=== PATIENT | male | born 1995 ===

== ENCOUNTER 2023-04-08 20:32 | Emergency (ER) | payer SELFPAY ==
[~2023-04-08] VITALS: Ht 171 cm; Wt 89.8 kg
[2023-04-08] MEDS ORDERED: LACTATED RINGERS 1,000 ML IV STA (20:46)
[2023-04-08] MEDS ORDERED: ONDANSETRON 4 MG/2 ML (SDV) Z0FRAN IVP ONE (21:00)
[2023-04-08 21:08] LABS: BASOPHILS # (AUTO) 0.1 10^3/uL (0.0-0.1); BASOPHILS % (AUTO) 0 % (0-10); EOSINOPHILS % (AUTO) 7 % (0-10); HEMATOCRIT 50 % (40-54); HEMOGLOBIN 17.3 g/dL (13.3-17.7); LYMPHOCYTES % (AUTO) 29 % (12-44); MEAN CORPUSCULAR HEMOGLOBIN 29 pg (25-34); MEAN CORPUSCULAR HGB CONC 35 g/dL (32-36); MEAN CORPUSCULAR VOLUME 84 fL (80-99); MEAN PLATELET VOLUME 10.1 fL (9.0-12.2); MONOCYTES % (AUTO) 7 % (0-12); NEUTROPHILS # (AUTO) 7.8 10^3/uL (1.8-7.8); NEUTROPHILS % (AUTO) 56 % (42-75); PLATELET COUNT 361 10^3/uL (130-400); WHITE BLOOD COUNT 13.9 10^3/uL (4.3-11.0)
--- NOTE | 2023-04-08 21:14 | ED GI ---
General Chief Complaint: Abdominal/GI Problems Stated Complaint: ABD PAIN/SOA/FEELS INTOXICATED/DIARRHEA Nursing Triage Note: n/v/d after eating x2 months, subjective fever, hallucinating, feels intoxicated. 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 HAS VOMITED X 1 TODAY, DIARRHEA X 2 TODAY -"FEELS INTOXICATED" -THINKS HE IS HALLUCINATING--"SEEING THINGS FOLLOWING ME" -SUBJECTIVE FEVER -OCCASIONAL BURNING ON URINATION HAS NOT EATEN IN 3 DAYS, NOTHING TO DRINK SINCE YESTERDAY STILL URINATING A NORMAL AMOUNT STATES ALL THESE SYMPTOMS BEGAN AFTER HE WENT OUT WITH A YANY WHO GAVE HIM UNKNOWN DRUGS A COUPLE OF MONTHS AGO SYMPTOMS NO DIFFERENT TODAY IN ANY WAY HAS NOT SOUGHT CARE AT ANY TIME UNTIL TONIGHT ( TUESDAY NIGHT) HAS NOT TAKEN ANYTHING FOR SYMPTOMS PT WAS TREATED FOR SYPHILIS 7 MONTHS AGO AT UNKNOWN CLINIC IS UNCLEAR ABOUT FOLLOW UP AND RETESTING. HE DENIES ANY MEDICAL PROBLEMS OTHERWISE, AND DOES NOT TAKE ANY DAILY MEDICATIONS NO PRIOR ABDOMINAL SURGERIES OR GI PROBLEMS SMOKES 1 PPD, OCCASIONAL ALCOHOL USE, ADMITS TO "UNKNOWN" DRUG USE. PCP: NONE Allergies and Home Medications Allergies Coded Allergies: No Known Drug Allergies (Unverified , 04/08/23) Patient Home Medication List Home Medication List Reviewed: Yes Dicyclomine HCl (Dicyclomine HCl) 20 Mg Tablet, 20 MG PO Q6H Prescribed by: JUAN HERRERA on 04/09/2310 L. Acidophilus/Pectin, [place] (Acidophilus Capsule) 7.5 Mg (30 Million Cell)-100 Mg Capsule, 2 EACH PO QID Prescribed by: JUAN HERRERA on 04/09/2310 Ondansetron (Ondansetron Odt) 4 Mg Tab.rapdis, 4 MG PO Q4H Prescribed by: JUAN HERRERA on 04/09/2310 Review of Systems Review of Systems Constitutional: see HPI EENTM: No Symptoms Reported Respiratory: No Symptoms Reported Cardiovascular: No Symptoms Reported Gastrointestinal: See HPI Genitourinary: See HPI Musculoskeletal: no symptoms reported Skin: no symptoms reported Psychiatric/Neurological: See HPI Endocrine: No Symptoms Reported Hematologic/Lymphatic: No Symptoms Reported Past Oldzrir-Mptvse-Jrdpls Hx Patient Social History Tobacco Use?: Yes Tobacco type used: Cigarettes Smoking Status: Current Everyday Smoker Substance use?: Yes Alcohol Use?: Yes Alcohol Frequency: Once in a while Pt feels they are or have been: No Immunizations Up To Date First/Initial COVID19 Vaccinat: na Past Medical History Surgery/Hospitalization HX: breast implants, nasal reconstruction, liposuction, syphillis Surgeries: Yes Breast Respiratory: No Cardiac: No Neurological: No Sexually Transmitted Disease: Yes (SYPHILIS) Genitourinary: No Gastrointestinal: No Musculoskeletal: No Endocrine: No HEENT: No Cancer: No Psychosocial: No Integumentary: No Blood Disorders: No Family Medical History SOCIAL HISTORY: -SMOKES 1 PPD -ETOH--OCCASIONAL USE -DRUGS--HAS USED UNKNOWN DRUGS. UDS + FOR THC ON 04/08/23 PAST SURGICAL HISTORY: -BILATERAL BREAST IMPLANTS -NOSE SURGERY / PLASTIC SURGERY -LIPO / FAT TRANSFER--"BBL" / THAI BUTT LIFT - ? GENITAL SURGERY ? Physical Exam Vital Signs Vital Signs - First Documented 04/08/23 20:56 Temp 36.9 Pulse 77 Resp 18 B/P (MAP) 157/102 (120) Pulse Ox 99 O2 Delivery Room Air Capillary Refill : Less Than 3 Seconds Height/Weight/BMI Height: '" Weight: lbs. oz. kg; 30.00 BMI Method: General Appearance: WD/WN, no apparent distress, other (DRESSED A FEMALE, WI TH HEAVY MAKEUP AND LOTS OF JEWELRY. DOES NOT APPEAR ILL OR TO BE IN ANY DISCOMFORT OR DISTRESS. 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, no motor/sensory deficits, alert, oriented x 3 Skin: normal color (), warm/dry; No rash Progress/Results/Core Measures Results/Orders Lab Results Laboratory Tests Test 04/08/23 20:58 04/08/23 21:07 04/08/23 21:40 Range/Units White Blood Count 13.9 H 4.3-11.0 10^3/uL Red Blood Count 5.92 H 4.30-5.52 10^6/uL Hemoglobin 17.3 13.3-17.7 g/dL Hematocrit 50 40-54 % Mean Corpuscular Volume 84 80-99 fL Mean Corpuscular Hemoglobin 29 25-34 pg Mean Corpuscular Hemoglobin Concent 35 32-36 g/dL Red Cell Distribution Width 12.7 10.0-14.5 % Platelet Count 361 130-400 10^3/uL Mean Platelet Volume 10.1 9.0-12.2 fL Immature Granulocyte % (Auto) 0 % Neutrophils (%) (Auto) 56 42-75 % Lymphocytes (%) (Auto) 29 12-44 % Monocytes (%) (Auto) 7 0-12 % Eosinophils (%) (Auto) 7 0-10 % Basophils (%) (Auto) 0 0-10 % Neutrophils # (Auto) 7.8 1.8-7.8 10^3/uL Lymphocytes # (Auto) 4.0 1.0-4.0 10^3/uL Monocytes # (Auto) 1.0 0.0-1.0 10^3/uL Eosinophils # (Auto) 1.0 H 0.0-0.3 10^3/uL Basophils # (Auto) 0.1 0.0-0.1 10^3/uL Immature Granulocyte # (Auto) 0.0 0.0-0.1 10^3/uL Sodium Level 140 135-145 MMOL/L Potassium Level 3.7 3.6-5.0 MMOL/L Chloride Level 107 98-107 MMOL/L Carbon Dioxide Level 20 L 21-32 MMOL/L Anion Gap 13 5-14 MMOL/L Blood Urea Nitrogen 14 7-18 MG/DL Creatinine 0.82 0.60-1.30 MG/DL Estimat Glomerular Filtration Rate 125 BUN/Creatinine Ratio 17 Glucose Level 122 H 70-105 MG/DL Calcium Level 9.7 8.5-10.1 MG/DL Corrected Calcium 8.5-10.1 MG/DL Magnesium Level 2.1 1.6-2.4 MG/DL Total Bilirubin 0.4 0.1-1.0 MG/DL Aspartate Amino Transf (AST/SGOT) 17 5-34 U/L Alanine Aminotransferase (ALT/SGPT) 17 0-55 U/L Alkaline Phosphatase 67 40-136 U/L Total Protein 8.0 6.4-8.2 GM/DL Albumin 4.9 H 3.2-4.5 GM/DL Amylase Level 37 25-125 U/L Lipase 22 8-78 U/L Acetaminophen Level < 10 L 10-30 UG/ML Serum Alcohol < 10 <10 MG/DL Syphilis Total Antibody Positive H Negative Rapid Plasma Reagin Nonreactive Nonreactive Urine Color YELLOW Urine Clarity CLEAR Urine pH 6.0 5-9 Urine Specific [place] >=1.030 1.016-1.022 Urine Protein NEGATIVE NEGATIVE Urine Glucose (UA) NEGATIVE NEGATIVE Urine Ketones NEGATIVE NEGATIVE Urine Nitrite NEGATIVE NEGATIVE Urine Bilirubin NEGATIVE NEGATIVE Urine Urobilinogen 0.2 < = 1.0 MG/DL Urine Leukocyte Esterase NEGATIVE NEGATIVE Urine RBC (Auto) NEGATIVE NEGATIVE Urine RBC RARE /HPF Urine WBC RARE /HPF Urine Crystals NONE /LPF Urine Bacteria TRACE /HPF Urine Casts NONE /LPF Urine Mucus SMALL H /LPF Urine Culture Indicated NO Urine Opiates Screen NEGATIVE NEGATIVE Urine Oxycodone Screen NEGATIVE NEGATIVE Urine Methadone Screen NEGATIVE NEGATIVE Urine Propoxyphene Screen NEGATIVE NEGATIVE Urine Barbiturates Screen NEGATIVE NEGATIVE Ur Tricyclic Antidepressants Screen NEGATIVE NEGATIVE Urine Phencyclidine Screen NEGATIVE NEGATIVE Urine Amphetamines Screen NEGATIVE NEGATIVE Urine Methamphetamines Screen NEGATIVE NEGATIVE Urine Benzodiazepines Screen NEGATIVE NEGATIVE Urine Cocaine Screen NEGATIVE NEGATIVE Urine Cannabinoids Screen POSITIVE H NEGATIVE My Orders Orders - JUAN HERRERA DO Ed Iv/Invasive Line Start (04/08/23 20:46) Monitor-Rhythm Ecg Trace Only (04/08/23 20:46) Acetaminophen (04/08/23 20:46) Alcohol (04/08/23 20:46) Amylase (04/08/23 20:46) Cbc With Automated Diff (04/08/23 20:46) Comprehensive Metabolic Panel (04/08/23 20:46) Drug Screen Stat (Urine) (04/08/23 20:46) Lipase (04/08/23 20:46) Magnesium (04/08/23 20:46) Ua Culture If Indicated (04/08/23 20:46) Ed Iv/Invasive Line Start (04/08/23 20:46) Ondansetron Injection (Zofran Injectio (04/08/23 21:00) Lactated Ringers (Lr 1000 Ml Iv Solution (04/08/23 20:46) Ed Iv/Invasive Line Start (04/08/23 20:46) Hepatitis Panel Acute (04/08/23 20:46) Hiv 1&2 Antibody (04/08/23 20:46) Syphilis Antibody Screen (04/08/23 20:46) Syphilis Health Check W/Reflex (04/08/23 20:46) Neis Kenneth Dna Urine Test (04/08/23 21:26) Rpr With Fta-Abs Reflex If Pos (04/08/23 21:36) Ct Abd/Pelv W (Appendicitis) (04/08/23 21:41) Iohexol Injection (Omnipaque 350 Mg/Ml 1 (04/08/23 22:30) Sodium Chloride Flush (Catheter Flush Sy (04/08/23 22:30) Ns (Ivpb) (Sodium Chloride 0.9% Ivpb Bag (04/08/23 22:30) Penicillin G Benzathine Inject (Bicillin (04/09/23 00:15) Medications Given in ED Current Medications Medications Dose Ordered Sig/[place] Route Start Time Stop Time Status Last Admin Dose Admin Iohexol 100 ml ONCE ONCE IV 04/08/23 22:30 04/08/23 22:31 DC 04/08/23 22:18 80 ML Ondansetron HCl 4 mg ONCE ONCE IVP 04/08/23 21:00 04/08/23 21:01 DC 04/08/23 21:14 4 MG Penicillin G Benzathine 2,400,000 unit ONCE ONCE IM 04/09/23 00:15 04/09/23 00:16 DC 04/09/23 00:19 2,400,000 UNIT Sodium Chloride 10 ml NEEDED PRN IV 04/08/23 22:30 04/09/23 00:25 DC 04/08/23 22:18 10 ML Sodium Chloride 100 ml ONCE ONCE IV 04/08/23 22:30 04/08/23 22:31 DC 04/08/23 22:18 80 ML Vital Signs/I&O 04/08/23 04/09/23 20:56 00:20 Temp 36.9 36.7 Pulse 77 71 Resp 18 18 B/P (MAP) 157/102 (120) 122/81 Pulse Ox 99 98 O2 Delivery Room Air Room Air 04/09/23 00:00 Intake Total 1000 ml Balance 1000 ml Blood Pressure Mean: 120 Progress Progress Note : Progress Note GIVEN: -IV FLUIDS -ZOFRAN -PENICILLIN G IM NO VOMITING OR DIARRHEA DURING ER STAY NO COMPLAINTS OF ANY KIND FOR REMAINDER OF ER STAY VITALS STABLE. CBC, CMP, AMYLASE, LIPASE, AND UA ALL ESSENTIALLY NORMAL UDS + FOR THC SYPHILIS SCREENING IS POSITIVE, CONSISTENT WITH PT'S REPORTED HISTORY OF SYPHILIS. FURTHER SYPHILIS SEROLOGY IS PENDING / SEND OUT TESTS. WILL TREAT WITH PENICILLIN HERE TODAY, PT IS UNCLEAR ABOUT WHETHER HE COMPLETED TREATMENT OR IF HE FOLLOWED UP. 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 Decision time for Depature: 23:58 Referrals: NO,LOCAL PHYSICIAN (PCP/Family) Primary Care Physician Patient Instructions: Abdominal Pain, Adult ED, Marijuana Use and Addiction (DC), Nausea and Vomiting, Adult ED, Syphilis (DC) Add. Discharge Instructions: NO MARIJUANA OR OTHER DRUGS OR ALCOHOL CLEAR LIQUIDS--WATER, BROTH, JELLO, GATORADE BRATS DIET--BANANAS, RICE, APPLESAUCE, TOAST, SALTINES FOLLOW UP WITH OF CHOICE NEXT WEEK FOR FURTHER CARE OF ALL OF YOUR PROBLEMS--CALL ON TUESDAY TO SCHEDULE FOLLOW UP APPOINTMENTS. All discharge instructions reviewed with patient and/or family. Voiced understanding. Scripts Dicyclomine HCl (Dicyclomine HCl) 20 Mg Tablet 20 MG PO Q6H for Abdominal Pain, #20 TAB Prov: JUAN HERRERA DO 04/09/23 L. Acidophilus/Pectin, [place] (Acidophilus Capsule) 7.5 Mg (30 Million Cell)-100 Mg Capsule 2 EACH PO QID, #40 CAP Prov: JUAN HERRERA DO 04/09/23 Ondansetron (Ondansetron Odt) 4 Mg Tab.rapdis 4 MG PO Q4H for Nausea/Vomiting, #10 TAB Prov: JUAN HERRERA DO 04/09/23 JUAN HERRERA DO April 08, 2023 21:14
[2023-04-08 21:15] LABS: BILIRUBIN,URINE NEGATIVE (NEGATIVE); CLARITY,URINE CLEAR; COLOR,URINE YELLOW; GLUCOSE, URINE (UA) NEGATIVE (NEGATIVE); KETONES,URINE NEGATIVE (NEGATIVE); LEUKOCYTE ESTERASE ,URINE NEGATIVE (NEGATIVE); NITRITE,URINE NEGATIVE (NEGATIVE); PROTEIN,URINE NEGATIVE (NEGATIVE)
[2023-04-08 21:26] LABS: AMPHETAMINE SCREEN, URINE NEGATIVE (NEGATIVE); BARBITURATE SCREEN URINE NEGATIVE (NEGATIVE); BENZODIAZEPINES SCREEN URINE NEGATIVE (NEGATIVE); CANNABINOID SCREEN, URINE POSITIVE (NEGATIVE); COCAINE SCREEN URINE NEGATIVE (NEGATIVE); METHADONE STAT NEGATIVE (NEGATIVE); OPIATE SCREEN URINE NEGATIVE (NEGATIVE); TRICYCLIC ANTIDEPRESSANTS SCRE NEGATIVE (NEGATIVE)
[2023-04-08 21:27] LABS: OXYCODONE STAT NEGATIVE (NEGATIVE); PROPOXYPHENE STAT NEGATIVE (NEGATIVE)
[2023-04-08 21:32] LABS: BACTERIA,URINE TRACE /HPF; RBC,URINE RARE /HPF; WBC,URINE RARE /HPF
[2023-04-08 21:33] LABS: CHLORIDE 107 MMOL/L (98-107); POTASSIUM 3.7 MMOL/L (3.6-5.0); SODIUM 140 MMOL/L (135-145)
[2023-04-08 21:34] LABS: ALBUMIN 4.9 GM/DL (3.2-4.5)
[2023-04-08 21:35] LABS: AMYLASE 37 U/L (25-125); CALCIUM 9.7 MG/DL (8.5-10.1)
[2023-04-08 21:36] LABS: GLUCOSE 122 MG/DL (70-105)
[2023-04-08 21:37] LABS: CARBON DIOXIDE 20 MMOL/L (21-32)
[2023-04-08 21:38] LABS: BILIRUBIN,TOTAL 0.4 MG/DL (0.1-1.0)
[2023-04-08 21:39] LABS: ALKALINE PHOSPHATASE 67 U/L (40-136)
[2023-04-08 21:40] LABS: CREATININE SERUM 0.82 MG/DL (0.60-1.30); GFR ESTIMATED 125
[2023-04-08 21:41] LABS: BUN/CREATININE RATIO 17
[2023-04-08 21:42] LABS: MAGNESIUM 2.1 MG/DL (1.6-2.4)
[2023-04-08 21:43] LABS: ALANINE AMINOTRANSFERASE 17 U/L (0-55)
[2023-04-08 21:44] LABS: LIPASE 22 U/L (8-78)
[2023-04-08 21:46] LABS: ACETAMINOPHEN < 10 UG/ML (10-30)
[2023-04-08] MEDS ORDERED: NS 100 ML (IVPB) BAG IV ONE (22:30)
[2023-04-08] MEDS ORDERED: CATHETER FLUSH 10 ML SYR IV PRN (22:30)
[2023-04-08] MEDS ORDERED: IOHEXOL 350 MG/ML 100 ML (OMNIPAQUE 350) VIAL IV ONE (22:30)
[2023-04-09] MEDS ORDERED: DICY20TA PO (00:11)
[2023-04-09] MEDS ORDERED: L. A1CAP11 PO (00:11)
[2023-04-09] MEDS ORDERED: ONDA4TAB11 PO (00:11)
[2023-04-09] MEDS ORDERED: PEN G BENZ (BICILLIN LA) 1.2 M UN/2 ML SYR IM ONE (00:15)
[2023-04-09 00:20] VITALS: BP 122/81
--- NOTE | 2023-04-09 06:23 | Diagnostic Imaging Report ---
PROCEDURE: CT abdomen and pelvis with contrast, rule out appendicitis. TECHNIQUE: Multiple contiguous axial images were obtained through the abdomen and pelvis after the administration of intravenous contrast. All CT scans use one or more of the following dose optimizing techniques: automated exposure control, MA and/or KvP adjustment based on patient size and exam type or iterative reconstruction. INDICATION: Right lower quadrant pain. FINDINGS: The heart size is normal. The lung bases are clear. There has been bilateral breast augmentation with implants. Liver is normal in size without focal lesions. Gallbladder is unremarkable. There is no biliary duct dilatation. Spleen is normal. Pancreas, adrenal glands and kidneys normal. The aorta is nonaneurysmal. The bowel gas pattern is nonspecific. The appendix is normal. There is no free air. There is no ascites. There are no focal inflammatory changes. There appear to be at least partially nondistended testes in the inguinal canal bilaterally. The osseous structures are unremarkable. IMPRESSION: Findings suspect for at least partially nondistended testes. Recommend clinical correlation and if warranted follow-up with dedicated scrotal ultrasound. Otherwise unremarkable noncontrast CT abdomen and pelvis. Specifically, the appendix is normal. Dictated by: Dictated on workstation # [id number]
[2023-04-11 14:20] LABS: HEPATITIS C ANTIBODY C Non-Reactive (Non-Reactive)
== END 2023-04-09 00:25 | disposition home or self-care (01) ==
LOC: ER 20:39
DX: R11.2 Nausea with vomiting, unspecified (principal); A53.9 Syphilis, unspecified; F12.90 Cannabis use, unspecified, uncomplicated; R10.84 Generalized abdominal pain; R19.7 Diarrhea, unspecified; F17.210 Nicotine dependence, cigarettes, uncomplicated; Z28.310 Unvaccinated for COVID-19
CPT/HCPCS: 74177; 80053; 80074; 80306; 81000; 82150; 83690; 83735; 85025; 86592; 86780; 87389; 87491; 87591; 93041; 99284; G0480 ×2; 36415; 80320; 80329